=== PATIENT | male | born 1985 | race Two or more races ===

== ENCOUNTER 2023-05-07 15:02 | Emergency (ER) | payer OTHER ==
[~2023-05-07] VITALS: Ht 180.3 cm; Wt 102.5 kg
== END 2023-05-07 19:23 | disposition home or self-care (01) ==
LOC: ER 15:02
DX: R51.9 Headache, unspecified (principal); J10.1 Influenza due to other identified influenza virus with other respiratory manifestations; Z20.822 Contact with and (suspected) exposure to COVID-19